=== PATIENT | female | born 1950 | race Caucasian/White ===

== ENCOUNTER 2020-08-09 11:43 | Inpatient (IN) ==
[2020-08-09 12:50] LABS: Basophils # 0.1 10*3/uL (0.0-0.2); Basophils % 0.8 % (0.0-0.8); Eosinophils # 0.2 10*3/uL (0.0-0.87); Eosinophils % 2.5 % (0.00-10.9); Hematocrit 32.5 VOL% (35.7-47.0); Hemoglobin 10.7 GM/DL (12.0-16.0); Immature Granulocytes % 0.3 %; Immature Granulocytes Absolute 0.03 #; Lymphocytes # 1.2 10*3/uL (1.4-4.0); Lymphocytes % 13.6 % (21.3-54.2); Mean Corpuscular HGB Conc 32.9 GM/DL (32-36); Mean Corpuscular Volume 92.6 FL (87-102); Mean Platelet Volume 11.1 FL (9.6-12.0); Monocytes % 6.3 % (1.7-12.7); Neutrophils % 76.5 % (38.7-73.9); Platelet Count 292 T/CUMM (130-400); Red Blood Count 3.51 MC/CUMM (3.8-5.5); Red Cell Distribution Width 13.1 % (9.3-17.3); White Blood Count 8.6 T/CUMM (4-12)
[2020-08-09] MEDS ORDERED: cefTRIAXone 1,000 MG in SODIUM CHLORIDE 0.9% 100 ML IV STA (13:15)
[2020-08-09 13:18] LABS: Bilirubin,Total 0.6 MG/DL (0.2-1.0); Calcium 8.9 MG/DL (8.5-10.1); Osmolality,Calculated 296.5 MOS/KG (273-304); Potassium 4.2 MMOL/L (3.5-5.1); Total Protein 7.9 G/DL (6.4-8.3)
[2020-08-09] MEDS ORDERED: ONDANSETRON 4 MG/2 ML VIAL IV PRN (15:54)
[2020-08-09 16:47] LABS: Thyroid Stimulating Hormone 0.673 uIU/ml (0.358-3.74); Uric Acid 6.7 MG/DL (2.6-6.0)
[2020-08-09] MEDS: SODIUM CHLORIDE 0.45% 1,000 ML IV SCH (16:56)
[2020-08-09] MEDS: PANTOPRAZOLE 40 MG TABLET PO SCH (16:56)
[2020-08-09] MEDS: ENOXAPARIN 30 MG/0.3 ML SYRINGE SUBCUT SCH (21:06)
[2020-08-09 21:23] LABS: Protein/Creatinine Ratio,Urine 0.4 RATIO
[2020-08-10] MEDS: SODIUM CHLORIDE 0.45% 1,000 ML IV SCH ×3 (01:31→19:10)
[2020-08-10 05:35] LABS: Basophils # 0.1 10*3/uL (0.0-0.2); Basophils % 0.7 % (0.0-0.8); Eosinophils # 0.3 10*3/uL (0.0-0.87); Eosinophils % 3.4 % (0.00-10.9); Hematocrit 30.1 VOL% (35.7-47.0); Hemoglobin 9.6 GM/DL (12.0-16.0); Immature Granulocytes % 0.2 %; Immature Granulocytes Absolute 0.02 #; Lymphocytes # 1.2 10*3/uL (1.4-4.0); Lymphocytes % 14.1 % (21.3-54.2); Mean Corpuscular HGB Conc 31.9 GM/DL (32-36); Mean Corpuscular Volume 94.1 FL (87-102); Mean Platelet Volume 11.3 FL (9.6-12.0); Monocytes % 7.2 % (1.7-12.7); Neutrophils % 74.4 % (38.7-73.9); Platelet Count 267 T/CUMM (130-400); White Blood Count 8.1 T/CUMM (4-12)
[2020-08-10 06:02] LABS: Calcium 8.6 MG/DL (8.5-10.1); Osmolality,Calculated 296.5 MOS/KG (273-304); Potassium 4.1 MMOL/L (3.5-5.1)
[2020-08-10 06:06] LABS: Risk Ratio 3.43; VLDL CHOLESTEROL 15.8 MG/DL
[2020-08-10] MEDS: PANTOPRAZOLE 40 MG TABLET PO SCH (09:08)
[2020-08-10] MEDS: ZALEPLON 5 MG CAPSULE PO PRN (20:34)
[2020-08-10] MEDS: ENOXAPARIN 30 MG/0.3 ML SYRINGE SUBCUT SCH (20:34)
[2020-08-11] MEDS: SODIUM CHLORIDE 0.45% 1,000 ML IV SCH ×2 (03:32→14:45)
[2020-08-11 06:06] LABS: Basophils # 0.1 10*3/uL (0.0-0.2); Basophils % 0.9 % (0.0-0.8); Eosinophils # 0.2 10*3/uL (0.0-0.87); Eosinophils % 3.2 % (0.00-10.9); Hematocrit 28.8 VOL% (35.7-47.0); Hemoglobin 9.5 GM/DL (12.0-16.0); Immature Granulocytes % 0.1 %; Immature Granulocytes Absolute 0.01 #; Lymphocytes # 1.1 10*3/uL (1.4-4.0); Lymphocytes % 16.6 % (21.3-54.2); Mean Corpuscular Volume 92.6 FL (87-102); Mean Platelet Volume 11.6 FL (9.6-12.0); Monocytes % 7.4 % (1.7-12.7); Neutrophils % 71.8 % (38.7-73.9); Platelet Count 236 T/CUMM (130-400); Red Blood Count 3.11 MC/CUMM (3.8-5.5); Red Cell Distribution Width 12.9 % (9.3-17.3); White Blood Count 6.8 T/CUMM (4-12)
[2020-08-11 06:26] LABS: Calcium 8.6 MG/DL (8.5-10.1); Osmolality,Calculated 295.4 MOS/KG (273-304); Potassium 3.7 MMOL/L (3.5-5.1)
[2020-08-11 06:34] LABS: Parathyroid Hormone Intact 64.8 PG/ML (18.4-80.1)
[2020-08-11 06:38] LABS: % Iron Saturation 17.1 % (18-50); Folate 9.9 NG/ML (5.38-24.0); Vitamin B12 415 PG/ML (211-911)
[2020-08-11 07:03] LABS: Total Protein 6.5 G/DL (6.4-8.3)
[2020-08-11 10:05] LABS: Bacteria,Urine Occasional /HPF (Few); Bilirubin,Urine Negative (Negative); Blood, Urine Small mg/dL (Negative); Glucose,Urine (UA) Negative (Negative); Ketones,Urine Negative (Negative); Mucus,Urine Occasional /LPF (Occasional); Nitrite,Urine Negative (Negative); Protein,Urine Negative; RBC,Urine 4 /HPF (0-4); Squamous Epithelial Cell,Urine Occasional /HPF (0-10); Urine Appearance CLEAR (Clear); Urine Color Straw (Yellow); Urine Specific Gravity 1.005 (1.001-1.035); Urine Urobilinogen < 2.0 EU/DL (0.2-1.0); WBC,Urine 121 /HPF (0-6)
[2020-08-11] MEDS: PANTOPRAZOLE 40 MG TABLET PO SCH (10:37)
[2020-08-11] MEDS: ZALEPLON 5 MG CAPSULE PO PRN (21:44)
[2020-08-11] MEDS: ENOXAPARIN 30 MG/0.3 ML SYRINGE SUBCUT SCH (21:44)
[2020-08-12] MEDS: SODIUM CHLORIDE 0.45% 1,000 ML IV SCH (00:15)
[2020-08-12 04:15] LABS: ABG Base Excess -6.6 MMOL/L (-2.5-2.5); ABG Oxygen Saturation 98.5 % (95-100); ABG PH 7.343 (7.35-7.45); ABG TCO2 17.1 MMOL/L (23-27); Allen Test Positive; Pt O2 Delivery Device Room Air
[2020-08-12 06:48] LABS: Albumin 2.5 G/DL (3.4-5.0); Calcium 8.4 MG/DL (8.5-10.1); Osmolality,Calculated 298.1 MOS/KG (273-304)
[2020-08-12 07:53] LABS: Immunoglobulin A (Chem) 144 MG/DL (70-400); Immunoglobulin G (Chem) 933 MG/DL (700-1600); Immunoglobulin M (Chem) 31 MG/DL (40-230); Total Protein (Chem) 6.5 G/DL (6.4-8.3)
[2020-08-12 08:16] LABS: INR 1.1; PT Patient Result 12.1 SECS (9.8-11.9)
[2020-08-12] MEDS: PANTOPRAZOLE 40 MG TABLET PO SCH (09:45)
[2020-08-12 10:02] LABS: Albumin (SPE) 3.5 G/DL (3.2-5.3); Albumin (SPE) Rel % 53.5 %; Alpha 1 (SPE) 0.3 G/DL (0.1-0.4); Alpha 2 (SPE) 1.1 G/DL (0.4-1.0); Alpha 2 (SPE) Rel % 16.6 %; Beta (SPE) 0.8 G/DL (0.5-1.1); Beta (SPE) Rel % 12.4 %; Gamma (SPE) 0.9 G/DL (0.7-1.7); Gamma (SPE) Rel % 13.5 %
[2020-08-12] MEDS: ENOXAPARIN 30 MG/0.3 ML SYRINGE SUBCUT SCH (21:16)
[2020-08-12] MEDS: ZALEPLON 5 MG CAPSULE PO PRN (23:00)
[2020-08-12] MEDS: LACTATED RINGERS 1,000 ML IV SCH (23:01)
[2020-08-13] MEDS: LACTATED RINGERS 1,000 ML IV SCH ×2 (06:51→09:15)
[2020-08-13 08:14] LABS: Basophils # 0.1 10*3/uL (0.0-0.2); Basophils % 0.9 % (0.0-0.8); Eosinophils # 0.3 10*3/uL (0.0-0.87); Eosinophils % 3.8 % (0.00-10.9); Hematocrit 30.5 VOL% (35.7-47.0); Hemoglobin 9.4 GM/DL (12.0-16.0); Immature Granulocytes % 0.3 %; Immature Granulocytes Absolute 0.02 #; Lymphocytes # 1.4 10*3/uL (1.4-4.0); Lymphocytes % 20.4 % (21.3-54.2); Mean Corpuscular HGB Conc 30.8 GM/DL (32-36); Mean Corpuscular Volume 95.6 FL (87-102); Mean Platelet Volume 11.4 FL (9.6-12.0); Monocytes % 6.5 % (1.7-12.7); Neutrophils % 68.1 % (38.7-73.9); Platelet Count 241 T/CUMM (130-400); Red Blood Count 3.19 MC/CUMM (3.8-5.5); Red Cell Distribution Width 12.8 % (9.3-17.3); White Blood Count 6.8 T/CUMM (4-12)
[2020-08-13 08:16] LABS: Albumin 2.6 G/DL (3.4-5.0); Calcium 8.8 MG/DL (8.5-10.1)
[2020-08-13 08:25] LABS: Calcium 8.7 MG/DL (8.5-10.1); Potassium 4.3 MMOL/L (3.5-5.1)
[2020-08-13 09:22] LABS: Immuno Free Light Chain Kappa 9.31 MG/DL (0.33-1.94); Immuno Free Light Chain Lambda 4.57 MG/DL (0.57-2.63); Immuno Free Light Chain Ratio 2.04 MG/DL (0.26-1.65)
[2020-08-13] MEDS ORDERED: DIAZEPAM 5 MG TABLET PO ONE (09:34)
[2020-08-13] MEDS: PANTOPRAZOLE 40 MG TABLET PO SCH (09:45)
[2020-08-13] MEDS ORDERED: MAGNESIUM SULF RIDER 4 GM in PREMIX 1 EACH IV PRN (09:52)
[2020-08-13] MEDS ORDERED: MAGNESIUM SULF RIDER 2 GM in PREMIX 1 EACH IV PRN (09:52)
[2020-08-13 13:31] LABS: Osmolality, Serum 303 mOsm/kg (275 - 295)
[2020-08-13 13:56] LABS: Osmolality, Urine 238 mOsm/kg (150 - 1150)
[2020-08-13] MEDS: SODIUM CHLORIDE 0.45% 1,000 ML IV SCH (14:39)
[2020-08-13 14:49] LABS: Total Protein 24 Hr Ur Result 479 MG/24HR (0-149.1); Total Volume,Urine 2525 ML (400-2000)
[2020-08-13] MEDS ORDERED: MAGNESIUM CITRATE 300 ML BOTTLE PO ONE ×2 (20:00)
[2020-08-13] MEDS: ENOXAPARIN 30 MG/0.3 ML SYRINGE SUBCUT SCH (20:20)
[2020-08-13] MEDS ORDERED: MAGNESIUM HYDROXIDE SUSP 30 ML UDCUP PO ONE (21:27)
[2020-08-13] MEDS: ZALEPLON 5 MG CAPSULE PO PRN (22:09)
[2020-08-14] MEDS: LACTATED RINGERS 1,000 ML IV SCH (00:22)
[2020-08-14 05:23] LABS: Basophils % 0.5 % (0.0-0.8); Eosinophils # 0.2 10*3/uL (0.0-0.87); Eosinophils % 2.4 % (0.00-10.9); Hematocrit 28.5 VOL% (35.7-47.0); Hemoglobin 9.1 GM/DL (12.0-16.0); Immature Granulocytes % 0.4 %; Immature Granulocytes Absolute 0.03 #; Lymphocytes # 1.5 10*3/uL (1.4-4.0); Lymphocytes % 18.4 % (21.3-54.2); Mean Corpuscular HGB Conc 31.9 GM/DL (32-36); Mean Corpuscular Volume 94.4 FL (87-102); Mean Platelet Volume 11.4 FL (9.6-12.0); Monocytes % 6.4 % (1.7-12.7); Neutrophils % 71.9 % (38.7-73.9); Platelet Count 267 T/CUMM (130-400); Red Blood Count 3.02 MC/CUMM (3.8-5.5); Red Cell Distribution Width 12.6 % (9.3-17.3); White Blood Count 7.9 T/CUMM (4-12)
[2020-08-14 05:47] LABS: Calcium 8.8 MG/DL (8.5-10.1); Osmolality,Calculated 294.1 MOS/KG (273-304); Potassium 3.7 MMOL/L (3.5-5.1)
[2020-08-14 05:48] LABS: Albumin 2.5 G/DL (3.4-5.0); Calcium 8.6 MG/DL (8.5-10.1)
[2020-08-14 07:13] LABS: 24 Hr Protein (Bench) 479 MG/24HR (0-149.1)
[2020-08-14] MEDS: PANTOPRAZOLE 40 MG TABLET PO SCH (09:10)
[2020-08-14 11:45] VITALS: BP 149/68
[2020-08-15 10:14] LABS: Anti-Nuclear Antibody Pattern Homogeneous
[2020-08-19 12:49] LABS: Anti SS-A Antibodies < 16 EU/ML
[2020-08-21 04:49] LABS: Double Stranded DNA Antibodies < 25.0 IU/ML
== END 2020-08-14 13:45 | disposition home or self-care (01) | DRG 683 ==
LOC: N.ED 11:43 → N.EDINP 13:38 → SUATTDRO 13:38 → N.4E 15:40
PROVIDERS: ADMIT Internal Medicine; ATTEND Internal Medicine